=== PATIENT | male | born 1970 | race Caucasian/White ===

== ENCOUNTER 2023-04-01 12:55 | Emergency (ER) | payer OTHER, MEDICAID, SELFPAY ==
[2023-04-01 13:08] VITALS: BP 132/74; PULSE 96; RESP 15; TEMP 36.3; O2SAT 99; BMI 22.4
[2023-04-01 13:45] LABS: Add Manual Diff / Slide Review NO; Basophils Absolute Auto 100 /uL (0-100); Basophils Percent Auto 1.5 % (0-2); Eosinophils Absolute Auto 200 /uL (0-450); Eosinophils Percent Auto 2.5 % (2-4); Hematocrit 41.2 % (41-53); Hemoglobin 14.1 g/dL (13.5-17.5); Lymphocytes Absolute Auto 2500 /uL (1100-4500); Lymphocytes Percent Auto 34.2 % (25-40); Mean Corpuscular HGB Conc 34.3 % (30-36); Mean Corpuscular Hemoglobin 31.9 PG (26-34); Monocytes Absolute Auto 500 /uL (0-900); Monocytes Percent Auto 7.5 % (3-14); Neutrophils Absolute Auto 3900 /uL (1500-7000); Neutrophils Percent Auto 54.3 % (50-75); Platelet Count 316 X10^3/uL (150-400); Red Blood Cell Count 4.43 X10^6/uL (4.5-5.9); Red Cell Distribution Width 13.2 % (11.6-14.8); White Blood Cell Count 7.2 X10^3/uL (4.5-11.0)
--- NOTE | 2023-04-01 13:47 | ED_ITS ---
HPI - Male Genitourinary <DEBRA Le - Last Filed: 04/01/23 16:24> General Chief complaint: Urogenital-Male Stated complaint: Pain when urinating Time Seen by Provider: 04/01/23 13:06 Source: patient Mode of arrival: Ambulatory History of Present Illness HPI Narrative: This is a 52-year-old gentleman who presents to the emergency department complaining of right-sided flank pain and inguinal pain which he states has been intermittent over the last year but now has blood in his urine with right inguin al pain which is worse than usual. He endorses a history of methamphetamine use, smoking and nephrolithiasis. He denies fever chills, nausea vomiting states his pain in the right inguinal region is 6/10. He states that he has difficulty emptying his bladder, frequent nocturia, urgency, but denies pain with bowel movement or pain at the base of his penis. Denies known history of prostate issues. Denies any rectal pain. Related Data Previous Rx's Medication Instructions Recorded hydrocodone 5 mg-acetaminophen 325 1 tab PO Q6H PRN pain #14 tabs 04/01/23 mg tablet tamsulosin 0.4 mg capsule (Flomax) 0.4 mg PO BEDTIME #30 caps 04/01/23 Allergies Allergy/AdvReac Type Severity Reaction Status Date / Time No Known Drug Allergies Allergy Verified 04/01/23 13:08 Review of Systems <DEBRA Le - Last Filed: 04/01/23 16:24> Review of Systems ROS Unobtainable: All systems reviewed & are unremarkable except as noted in HPI and below Patient History <DEBRA Le - Last Filed: 04/01/23 16:24> Social History Smoking Status: Current every day smoker Smoking Status: Current every day smoker alcohol intake frequency: holidays/special occasions only Substance Use Type: methamphetamine Exam <DEBRA Le - Last Filed: 04/01/23 16:24> Narrative Exam Narrative: Reviewed vitals signs and nursing notes. General: Pleasant, sitting upright, in no acute distress, well groomed, afebrile HEENT: symmetrical facial expressions, moist mucous membranes, neck is supple CV: regular rate and rhythm, warm extremities Respiratory: normal work of breathing, without tachypnea or hypoxia. GI: abdomen soft, nondistended, right lower quadrant without tenderness, right CVA and right inguinal region is mildly tender MSK: moves all extremities, no weakness, normal tone, ambulatory without deficit Skin: brisk capillary refill, without rash or wound Neuro: clear speech and normal cognition, A&O x3, GCS 15, no focal motor or sensation deficits Initial Vital Signs Initial Vital Signs: Vital Signs Temperature 97.4 F L 04/01/23 13:08 Pulse Rate 96 H 04/01/23 13:08 Respiratory Rate 15 04/01/23 13:08 Blood Pressure 132/74 04/01/23 13:08 Pulse Oximetry 99 04/01/23 13:08 Oxygen Delivery Method Room Air 04/01/23 13:08 <Jeanne Salgado MD - Last Filed: 04/01/23 19:41> Initial Vital Signs Initial Vital Signs: Vital Signs Temperature 97.4 F L 04/01/23 13:08 Pulse Rate 96 H 04/01/23 13:08 Respiratory Rate 15 04/01/23 13:08 Blood Pressure 132/74 04/01/23 13:08 Pulse Oximetry 99 04/01/23 13:08 Oxygen Delivery Method Room Air 04/01/23 13:08 Course <DEBRA Le - Last Filed: 04/01/23 16:24> Orders Ordered: ED Orders 04/01/23 13:20 UA Complete [Urinalysis and Microscopic] Stat Urine Culture Stat 04/01/23 13:26 Complete Blood Count AUTO DIFF Stat Comprehensive Metabolic Panel Stat Lipase Stat 04/01/23 13:47 CT kidney ureter bladder (KUB) Stat 04/01/23 15:09 Consult to [facility] - [employer] [facility] Stat Discontinued Medications Hydromorphone HCl (Hydromorphone 0.5 Mg Inj) 0.5 mg IV NOW ONE Stop: 04/01/23 13:46 Last Admin: 04/01/23 13:58 Dose: 0.5 mg Documented By: NR Ketorolac Tromethamine (Ketorolac 30 Mg/Ml Vial) 15 mg IV NOW ONE Stop: 04/01/23 13:46 Last Admin: 04/01/23 13:57 Dose: 15 mg Documented By: NR Ondansetron HCl (Ondansetron 4 Mg/2 Ml Inj) 4 mg IV NOW PRN PRN Reason: Nausea And Vomiting Last Admin: 04/01/23 13:57 Dose: 4 mg Documented By: NR Tamsulosin HCl (Tamsulosin 0.4 Mg Capsule) 0.4 mg PO NOW ONE Stop: 04/01/23 15:35 Last Admin: 04/01/23 16:45 Dose: 0.4 mg Documented By: NR Vital Signs Vital signs: Vital Signs - 8 hr 04/01/23 13:08 04/01/23 16:45 Temperature 97.4 F L Pulse Rate 96 H 73 Respiratory Rate 15 Blood Pressure 132/74 117/69 Pulse Oximetry 99 99 Oxygen Delivery Method Room Air Room Air <Jeanne Salgado MD - Last Filed: 04/01/23 19:41> Orders Ordered: ED Orders 04/01/23 13:20 UA Complete [Urinalysis and Microscopic] Stat Urine Culture Stat 04/01/23 13:26 Complete Blood Count AUTO DIFF Stat Comprehensive Metabolic Panel Stat Lipase Stat 04/01/23 13:47 CT kidney ureter bladder (KUB) Stat 04/01/23 15:09 Consult to [facility] [place] - [employer] Stat Discontinued Medications Hydromorphone HCl (Hydromorphone 0.5 Mg Inj) 0.5 mg IV NOW ONE Stop: 04/01/23 13:46 Last Admin: 04/01/23 13:58 Dose: 0.5 mg Documented By: NR Ketorolac Tromethamine (Ketorolac 30 Mg/Ml Vial) 15 mg IV NOW ONE Stop: 04/01/23 13:46 Last Admin: 04/01/23 13:57 Dose: 15 mg Documented By: NR Ondansetron HCl (Ondansetron 4 Mg/2 Ml Inj) 4 mg IV NOW PRN PRN Reason: Nausea And Vomiting Last Admin: 04/01/23 13:57 Dose: 4 mg Documented By: NR Tamsulosin HCl (Tamsulosin 0.4 Mg Capsule) 0.4 mg PO NOW ONE Stop: 04/01/23 15:35 Last Admin: 04/01/23 16:45 Dose: 0.4 mg Documented By: NR Vital Signs Vital signs: Vital Signs - 8 hr 04/01/23 13:08 04/01/23 16:45 Temperature 97.4 F L Pulse Rate 96 H 73 Respiratory Rate 15 Blood Pressure 132/74 117/69 Pulse Oximetry 99 99 Oxygen Delivery Method Room Air Room Air MDM - Male Genitourinary <Tracie Tucker [facility] - Last Filed: 04/01/23 16:24> Lab Data 04/01/23 13:26 04/01/23 13:26 Labs: Lab Results 04/01/23 04/01/23 04/01/23 Range/Units 13:20 13:26 13:26 WBC 7.2 (4.5-11.0) X10^3/uL RBC 4.43 L (4.5-5.9) X10^6/uL Hgb 14.1 (13.5-17.5) g/dL Hct 41.2 (41-53) % MCV 93.0 (80-100) fL MCH 31.9 (26-34) PG MCHC 34.3 (30-36) % RDW 13.2 (11.6-14.8) % Plt Count 316 (150-400) X10^3/uL Neut % (Auto) 54.3 (50-75) % Lymph % (Auto) 34.2 (25-40) % [place] % (Auto) 7.5 (3-14) % Eos % (Auto) 2.5 (2-4) % Baso % (Auto) 1.5 (0-2) % Neut # (Auto) 3900 (4654-5590) /uL Lymph # (Auto) 2500 (4536-7630) /uL [place] # (Auto) 500 (0-900) /uL Eos # (Auto) 200 (0-450) /uL Baso # (Auto) 100 (0-100) /uL Sodium 139 (137-145) mmol/L Potassium 3.7 (3.4-5.1) mmol/L Chloride 103 (98-107) mmol/L Carbon Dioxide 27 (22-32) mmol/L BUN 22 H (9-20) mg/dL Creatinine 0.84 (0.66-1.25) mg/dL Estimated GFR > 60 (>60) mL/min BUN/Creatinine Ratio 26.2 H (6-22) Glucose 115 H (70-100) mg/dL Calcium 8.8 (8.4-10.2) mg/dL Total Bilirubin 0.2 (0.2-1.3) mg/dL AST 25 (17-59) IU/L ALT 35 (<50) IU/L Alkaline Phosphatase 60 (38-126) U/L Total Protein 7.5 (6.3-8.2) g/dL Albumin 4.6 (3.5-5.0) g/dL Globulin 2.9 (1.7-4.1) g/dL Albumin/Globulin Ratio 1.6 (1.0-2.8) Lipase 115 (23-300) U/L Urine Color Yellow Urine Appearance Clear Urine pH 6.0 (4.5-8.0) Ur Specific [place] >=1.030 H (1.000-1.035) Urine Protein 2+ H (Negative) Urine Glucose (UA) Negative (Negative) g/dL Urine Ketones Negative (NEGATIVE) Urine Occult Blood 3+ H (Negative) Urine Nitrate Negative (Negative) Urine Bilirubin Negative (NEGATIVE) Urine Urobilinogen 0.2 (0.2) E.U./dL Ur Leukocyte Esterase Negative (NEGATIVE) Urine RBC 30-100/hpf H (0-5/HPF) Urine WBC 5-10/hpf H (0-5/HPF) Ur Squamous Epith Cells None seen (0-5/HPF) Urine Bacteria None seen (None) Urine Mucus 1+ H (Negative) Ur Culture Indicated? Specimen cultured Urine Dip Bedside Urine Glucose Negative Bedside Urine Bilirubin - Negative Bedside Urine Ketone - Negative Urine Specific [place] 1.030 Bedside Urine Occult Blood +++ Bedside Urine pH 6.0 Bedside Urine Protein + 30 Bedside Urine Urobilinogen - Negative Bedside Urine Nitrite - Negative Bedside Urine Leukocytes - Negative Esterase Imaging Data CT scan - abdomen/pelvis: Radiologist's Impression: [address] [place] [id number] [address] Scan Report Signed Patient: Kye Colin MR#: [id number] : 1970 Acct:[id number] Age/Sex: 52 / M Date of Service: 04/01/23 Loc: ED Accession Number: [id number] ?? Procedure: CT kidney ureter bladder (KUB) Ordering Provider: Tracie Tucker PROCEDURE:? CT KIDNEY URETER BLADDER (KUB) ? INDICATIONS:? Right-sided flank and inguinal pain with hematuria ? TECHNIQUE:? Axial sections were acquired from the lung bases to the pubic symphysis.? Coronal and sagittal reformats were performed.? For radiation dose reduction, the following was used: ?automated exposure control, adjustment of mA and/or kV according to patient size.? ? COMPARISON:? None. ? FINDINGS:? Image quality:? Excellent.? ? Lung bases:? Unremarkable.? ? Heart:? No significant findings. ? URINARY: Right Kidney:? [place] brush calyceal calcifications and multiple tiny nonobstructing stones.? No hydronephrosis.? Findings consistent with renal tubular acidosis.? Right Ureter:? No hydroureter.? ? Left Kidney:? paint brush calyceal calcifications in multiple tiny nonobstructing stones. ?Findings consistent with renal tubular acidosis.? Left Ureter:? No hydroureter.? ? Bladder:? There is a large luminal bladder mass with peripheral calcifications.? The mass is suspicious for a polypoid bladder cancer measuring 4.2 x 6.0 x 5.0 cm. ? ABDOMEN: Liver:? Unremarkable.? ? Gallbladder:? The? ? Biliary ducts:? Unremarkable.? ? Pancreas:? Unremarkable.? ? Spleen:? Unremarkable.? ? Adrenal Glands:? Unremarkable.? ? ? Stomach and Bowel:? Stomach, small bowel loops, and colon are unremarkable.? Peritoneum:? No abnormal intraperitoneal fluid.? No free air.? ? Ventral Wall: ? No hernia.? Abdominal Nodes:? Question pelvic sidewall adenopathy versus unopacified bowel. Vessels:? Aorta and inferior vena cava are normal in size.? ? PELVIS: Pelvic Organs:? Unremarkable.? ? Pelvic Nodes: Unremarkable. Miscellaneous: No inguinal hernias are seen. ? ? ? Bones:? Lumbar degenerative change.? No lytic or blastic bony lesions.? No compression fractures. . ? IMPRESSION:? ? 1. 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 ? 2. Numerous tiny bilateral nonobstructing renal stones and paintbrush calcifications are consistent with renal tubular acidosis. ? 2. Question pelvic adenopathy versus unopacified bowel.? ? Comment:? Recommend CT abdomen and pelvis with oral and IV contrast.? Recommend referral to a urologist. ? ?? Dictated by: Atif Horner M.D. on 04/01/2023 at 14:43 ? ? Approved by: Atif Horner M.D. on 04/01/2023 at 14:48 ? MDM Narrative Medical decision making narrative: Chief Complaint: Right flank and inguinal pain with hematuria Multiple etiologies for patient's complaint considered including, but not limited to: Nephrolithiasis, BPH, prostatitis, urinary tract infection, obstructive uropathy, pyelonephritis, appendicitis I have independently reviewed the patient's vital signs and nursing notes as well as prior records if available. Plan: Pain control, CT KUB, UA with microscopy. Urine dip is positive for blood and protein, will evaluate on microscopy UA shows blood and protein Patient's lab work is unremarkable, no leukocytosis or anemia, UA with blood and WBCs, no leukocyte esterase or bacteria, specimen was cultured. Urology coverage is through [facility] today, Dr. Jurado is in seeing the patient currently, consulted with the office who states that if patient can obtain insurance coverage by Wednesday there is a to [address] Jurado for follow-up that he can. I contacted registration who states that they do not know how to help him with this application, put in a social work referral, will discuss when they are available. Patient states that he filled out most of the paperwork mind but was unsure what to put for a few other parts. CT KUB is significant for probable large polypoid bladder cancer measuring 6 cm in maximum dimension. Numerous tiny bilateral nonobstructing renal stones and calcifications consistent with renal tubular acidosis. Impression also states question pelvic adenopathy versus opacified bowel. Consultation with Dr. Jurado was attempted, he is in seeing in a patient, left message to call back Patient will complete his Medicare paperwork with social work tomorrow over the. Instructed him to call the appointment for Wednesday and to follow-up as directed with Dr. Jurado. He states understanding, gave him hydrocodone for pain, instructed him to come in for inability to void, increased blood in his urine, pain out of proportion, vomiting or chills. Patient does not have evidence of anemia or leukocytosis on his labs, other significant finding other than his UA being positive for RBCs WBCs. Social considerations that may affect disposition: none Questions are addressed and there is agreement with the plan and for follow-up. I consulted with the ED attending physician Dr. Salgado as needed for higher level of care considerations and they were available for discussion and recommendations regarding plan of care and diagnostic testing. Patient is appropriate for outpatient management. <Jeanne Salgado MD - Last Filed: 04/01/23 19:41> Lab Data Labs: Lab Results 04/01/23 04/01/23 04/01/23 Range/Units 13:20 13:26 13:26 WBC 7.2 (4.5-11.0) X10^3/uL RBC 4.43 L (4.5-5.9) X10^6/uL Hgb 14.1 (13.5-17.5) g/dL Hct 41.2 (41-53) % MCV 93.0 (80-100) fL MCH 31.9 (26-34) PG MCHC 34.3 (30-36) % RDW 13.2 (11.6-14.8) % Plt Count 316 (150-400) X10^3/uL Neut % (Auto) 54.3 (50-75) % Lymph % (Auto) 34.2 (25-40) % [place] % (Auto) 7.5 (3-14) % Eos % (Auto) 2.5 (2-4) % Baso % (Auto) 1.5 (0-2) % Neut # (Auto) 3900 (7235-3237) /uL Lymph # (Auto) 2500 (6440-4472) /uL [place] # (Auto) 500 (0-900) /uL Eos # (Auto) 200 (0-450) /uL Baso # (Auto) 100 (0-100) /uL Sodium 139 (137-145) mmol/L Potassium 3.7 (3.4-5.1) mmol/L Chloride 103 (98-107) mmol/L Carbon Dioxide 27 (22-32) mmol/L BUN 22 H (9-20) mg/dL Creatinine 0.84 (0.66-1.25) mg/dL Estimated GFR > 60 (>60) mL/min BUN/Creatinine Ratio 26.2 H (6-22) Glucose 115 H (70-100) mg/dL Calcium 8.8 (8.4-10.2) mg/dL Total Bilirubin 0.2 (0.2-1.3) mg/dL AST 25 (17-59) IU/L ALT 35 (<50) IU/L Alkaline Phosphatase 60 (38-126) U/L Total Protein 7.5 (6.3-8.2) g/dL Albumin 4.6 (3.5-5.0) g/dL Globulin 2.9 (1.7-4.1) g/dL Albumin/Globulin Ratio 1.6 (1.0-2.8) Lipase 115 (23-300) U/L Urine Color Yellow Urine Appearance Clear Urine pH 6.0 (4.5-8.0) Ur Specific [place] >=1.030 H (1.000-1.035) Urine Protein 2+ H (Negative) Urine Glucose (UA) Negative (Negative) g/dL Urine Ketones Negative (NEGATIVE) Urine Occult Blood 3+ H (Negative) Urine Nitrate Negative (Negative) Urine Bilirubin Negative (NEGATIVE) Urine Urobilinogen 0.2 (0.2) E.U./dL Ur Leukocyte Esterase Negative (NEGATIVE) Urine RBC 30-100/hpf H (0-5/HPF) Urine WBC 5-10/hpf H (0-5/HPF) Ur Squamous Epith Cells None seen (0-5/HPF) Urine Bacteria None seen (None) Urine Mucus 1+ H (Negative) Ur Culture Indicated? Specimen cultured Urine Dip Bedside Urine Glucose Negative Bedside Urine Bilirubin - Negative Bedside Urine Ketone - Negative Urine Specific [place] 1.030 Bedside Urine Occult Blood +++ Bedside Urine pH 6.0 Bedside Urine Protein + 30 Bedside Urine Urobilinogen - Negative Bedside Urine Nitrite - Negative Bedside Urine Leukocytes - Negative Esterase Discharge Plan Departure Patient Disposition: Home Clinical Impression: Bladder mass, Bilateral renal stones Hematuria Qualifiers: Hematuria type: gross Qualified Code(s): R31.0 - Gross hematuria Instructions: Bladder Cancer Activity Restrictions/Additional Instructions: *You have been diagnosed with a bladder mass measuring 6 cm. This is concerning for cancer. Please call Dr. Jurado's office and ensure that you are scheduled for the appointment on Wednesday at 02:15. Please finish your paperwork as soon as you get home online and pick an insurance. Please follow-up as needed, I have given you a prescription of Flomax to help with voiding, okay to use Tylenol ibuprofen as needed for pain or hydrocodone. Please talk to Jacki tomorrow who will help you finish this. I hope that you feel better soon, I am sorry about this news. Please come back here if you have any complications or if you started bleeding heavily. Okay to use ibuprofen so for pain, take it with food please. *What to do: *Please continue to take your regular medications as directed. [x ] New medication prescriptions sent to your pharmacy: [ [facility]] [ ] New medication written as a paper prescription [ ] No new medications given *Please call and schedule follow up with your primary care provider in 2-3 days, at least for an update. Let them know you were seen in the Emergency Department for the above problem. We will electronically transmit a record of today's note if your PCP or specialist is in our system. *If you do not have a primary care provider please contact [phone] to establish care with one of the [facility] primary care providers. *Return to the Emergency Department for worsening symptoms, inability to keep liquids down, fever greater than 101F, chills, or other concerning symptom. Prescriptions: New tamsulosin [Flomax] 0.4 mg capsule 0.4 mg PO BEDTIME Qty: 30 0RF hydrocodone-acetaminophen 5-325 mg tablet 1 tab PO Q6H PRN (Reason: pain) Qty: 14 0RF Referrals: Baldo Jurado MD [Physician] - Stand Alone Forms: Patient Portal/API <Jeanne Salgado MD - Last Filed: 04/01/23 19:41> [facility] I was immediately available in the department for consultation throughout this patient's visit. Jeanne Salgado MD
--- NOTE | 2023-04-01 13:47 | DI.CT.S_ITS ---
PROCEDURE: CT KIDNEY URETER BLADDER (KUB) INDICATIONS: Right-sided flank and inguinal pain with hematuria TECHNIQUE: Axial sections were acquired from the lung bases to the pubic symphysis. Coronal and sagittal reformats were performed. For radiation dose reduction, the following was used: automated exposure control, adjustment of mA and/or kV according to patient size. COMPARISON: None. FINDINGS: Image quality: Excellent. Lung bases: Unremarkable. Heart: No significant findings. URINARY: Right Kidney: [place] brush calyceal calcifications and multiple tiny nonobstructing stones. No hydronephrosis. Findings consistent with renal tubular acidosis. Right Ureter: No hydroureter. Left Kidney: paint brush calyceal calcifications in multiple tiny nonobstructing stones. Findings consistent with renal tubular acidosis. Left Ureter: No hydroureter. Bladder: There is a large luminal bladder mass with peripheral calcifications. The mass is suspicious for a polypoid bladder cancer measuring 4.2 x 6.0 x 5.0 cm. ABDOMEN: Liver: Unremarkable. Gallbladder: The Biliary ducts: Unremarkable. Pancreas: Unremarkable. Spleen: Unremarkable. Adrenal Glands: Unremarkable. Stomach and Bowel: Stomach, small bowel loops, and colon are unremarkable. Peritoneum: No abnormal intraperitoneal fluid. No free air. Ventral Wall: No hernia. Abdominal Nodes: Question pelvic sidewall adenopathy versus unopacified bowel. Vessels: Aorta and inferior vena cava are normal in size. PELVIS: Pelvic Organs: Unremarkable. Pelvic Nodes: Unremarkable. Miscellaneous: No inguinal hernias are seen. Bones: Lumbar degenerative change. No lytic or blastic bony lesions. No compression fractures. . IMPRESSION: 1. 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 2. Numerous tiny bilateral nonobstructing renal stones and paintbrush calcifications are consistent with renal tubular acidosis. 2. Question pelvic adenopathy versus unopacified bowel. Comment: Recommend CT abdomen and pelvis with oral and IV contrast. Recommend referral to a urologist. Dictated by: Atif Horner M.D. on 04/01/2023 at 14:43 Approved by: Atif Horner M.D. on 04/01/2023 at 14:48
[2023-04-01 13:48] LABS: Appearance Urine UA CLEAR; Bilirubin Urine UA NEGATIVE (NEGATIVE); Color Urine UA YELLOW; Glucose Urine UA NEGATIVE (Negative); Ketones Urine UA NEGATIVE (NEGATIVE); Leukocyte Esterase Urine UA NEGATIVE (NEGATIVE); Nitrite Urine UA NEGATIVE (Negative); Occult Blood Urine UA 3+ (Negative); Protein Urine UA 2+ (Negative); Specific Gravity Urine UA >=1.030 (1.000-1.035); Urobilinogen Urine UA 0.2 E.U./dL (0.2)
[2023-04-01] MEDS: ONDANSETRON 4 MG/2 ML INJ IV (13:57)
[2023-04-01] MEDS: KETOROLAC 30 MG/ML VIAL 15 MG IV (13:57)
[2023-04-01] MEDS: HYDROMORPHONE 0.5 MG INJ IV (13:58)
[2023-04-01 14:01] LABS: Alanine Aminotransferase 35 IU/L (<50); Albumin 4.6 g/dL (3.5-5.0); Albumin Globulin Ratio 1.6 (1.0-2.8); Alkaline Phosphatase 60 U/L (38-126); Aspartate Aminotransferase 25 IU/L (17-59); BUN Creatinine Ratio 26.2 (6-22); Bilirubin Total 0.2 mg/dL (0.2-1.3); Blood Urea Nitrogen 22 mg/dL (9-20); Calcium 8.8 mg/dL (8.4-10.2); Carbon Dioxide 27 mmol/L (22-32); Chloride 103 mmol/L (98-107); Estimated Glomerular Filt Rate > 60 mL/min (>60); Globulin 2.9 g/dL (1.7-4.1); Glucose 115 mg/dL (70-100); HEMOLYSIS < 15 (0-50); Lipase 115 U/L (23-300); Potassium 3.7 mmol/L (3.4-5.1); Sodium 139 mmol/L (137-145); Total Protein 7.5 g/dL (6.3-8.2)
[2023-04-01 14:03] LABS: Bacteria Urine None Seen; Culture Indicated Urine Specimen Cultured; Mucus Urine 1+ (Negative); RBC Urine 30-100/HPF (0-5/HPF); Squamous Epithelial Cell Urine None Seen (0-5/HPF); WBC Urine 5-10/HPF (0-5/HPF)
--- NOTE | 2023-04-01 14:07 | PC.NURSE ---
Addendum entered by Hilda Carroll R.N. 04/01/23 14:07: unable to load patient information into VS machine. Original Note: pt placed in room 3 for VS observation. placed on Q30min BP with continuous pulse oximetry
[2023-04-01 16:45] VITALS: BP 117/69; PULSE 73; O2SAT 99
[2023-04-01] MEDS: TAMSULOSIN 0.4 MG CAPSULE PO (16:45)
== END 2023-04-01 16:46 | disposition home or self-care (01) ==
PROVIDERS: Emergency Medicine; Emergency Provider Nurse Practitioner Critical Care Medicine
DX: N20.0 Calculus of kidney (principal); R31.0 Gross hematuria; N32.89 Other specified disorders of bladder
CPT/HCPCS: 36415; 74176; 80053; 81001; 81003; 83690; 85025; 87086; 96374; 96375; 99284; J1170; J1885; J2405

== ENCOUNTER → 2023-04-22 11:07 | Outpatient (CLI) | payer OTHER, MEDICAID, SELFPAY ==
--- NOTE | 2023-04-22 11:09 | DI.CT.S_ITS ---
PROCEDURE: CT IVP A/P W/WO INDICATIONS: Bladder mass question adenopathy TECHNIQUE: Optional 5 mm thick noncontrast images acquired from the diaphragm to the symphysis pubis. After the administration of intravenous contrast, 5 mm thick images acquired from the diaphragm to the symphysis pubis after a 10-minute delay. 2 mm thick coronal and sagittal reformats were then performed of the kidneys and ureters. For radiation dose reduction, the following was used: automated exposure control, adjustment of mA and/or kV according to patient size. COMPARISON: [facility], CT, CT KIDNEY URETER BLADDER (KUB), 04/01/2023, 14:29. FINDINGS: Image quality: Excellent. Lung bases: Lung bases are clear. Heart size is normal. Urinary system: Moderate burden punctate, bilateral nonobstructing nephrolithiasis. Endophytic solid lesion of the right kidney measuring 2.9 x 3.7 cm (series 4, image 89). Left-sided bladder wall mass measuring 4.5 x 5.4 cm. Mild wall thickening along the anterior margin, without perivesicular fat stranding or irregular outer contour to suggest invasion beyond the wall. Other solid organs: Liver is normal in size and enhancement. Gallbladder is unremarkable . Biliary system is non dilated. Pancreas enhances normally. Spleen is normal in size and enhancement. No adrenal nodules. Peritoneum and bowel: Bowel loops demonstrate normal wall thickness and caliber. No free fluid or air. Nodes and vessels: No retroperitoneal or mesenteric adenopathy by size criteria. Aorta and inferior vena cava are normal in size. Abdominal wall: No ventral hernias. Pelvis: No pathologic free pelvic fluid. No inguinal hernias or adenopathy. Bones: No suspicious bony lesions. No vertebral body compression fractures. IMPRESSION: Left-sided bladder wall mass measuring 4.5 x 5.4 cm. Mild wall thickening along the anterior margin, without perivesicular fat stranding or irregular outer contour to suggest invasion beyond the wall. No retroperitoneal adenopathy. Endophytic solid lesion on the midpole of the right kidney, probably representing a prominent column Of [place], less likely additional mass. Consider MRI for confirmation (renal mass protocol). Dictated by: Seymour Osorio M.D. on 04/22/2023 at 12:47 Approved by: Seymour Osorio M.D. on 04/22/2023 at 12:53
== END ==
PROVIDERS: Referring Provider Urology; Visit Provider Urology
DX: N32.89 Other specified disorders of bladder (principal); N28.9 Disorder of kidney and ureter, unspecified
CPT/HCPCS: 74178

== ENCOUNTER → 2023-05-11 06:52 | Day surgery (SDC) | payer OTHER, MEDICAID, SELFPAY ==
[2023-05-04 14:18] VITALS: BMI 22.4
[2023-05-11 07:11] VITALS: BP 128/72; PULSE 92; RESP 17; TEMP 36.3; O2SAT 98; BMI 22.3
[2023-05-11] MEDS: ALBUTEROL/IPRATROPIUM 3 ML AMPUL INH (07:29)
[2023-05-11] MEDS: LACTATED RINGERS 1,000 ML 42 ML IV (07:29)
--- NOTE | 2023-05-11 07:30 | SUR.OPER ---
Lithotomy on padded OR bed, head on pillow, arms secured on padded arm boards at <90 degrees abduction. Legs secured in padded yellow fins stirrups.
--- NOTE | 2023-05-11 07:48 | SUR.PREOP ---
Notified anesthesiologist and surgeon that patient used methampethamines at [address]. Dr Jurado speaking to patient. Patient apologetic but understands reason for cancellation. Advised patient to contact Dr Jurado's office to reschedule.
== END ==
PROVIDERS: Referring Provider Urology; Visit Provider Urology
DX: D49.4 Neoplasm of unspecified behavior of bladder (principal); Z53.8 Procedure and treatment not carried out for other reasons
CPT/HCPCS: 52224

== ENCOUNTER 2023-05-18 07:53 | Day surgery (SDC) | payer OTHER, MEDICAID, SELFPAY ==
[2023-05-18] VITALS (8 sets, daily range): BP systolic 107–138; BP diastolic 61–79; PULSE 65–83; RESP 13–18; TEMP 36.2–36.6; O2SAT 98–99; BMI 21.7
--- NOTE | 2023-05-18 | PATH_ITS ---
[facility] Accession Number: [id number] No. of containers..01 Tissue . 01 Material submitted: . bladder - LEFT LATERAL WALL BLADDER TUMOR . 01 Diagnosis: A. Bladder Tumor, Left Lateral Wall, Transurethral Resection: Papillary urothelial carcinoma, Low-grade, Non-invasive. Muscularis propria: Present and uninvolved. . COMMENT: The large tumor is entirely histologically examined. Inverted growth pattern is seen. MRV 05/27/2023 1556 Local . 01 Electronically signed: . Nitza Leigh MD, Pathologist NPI- [id number] . 01 Gross description: . The specimen is received in formalin labeled with the patient's name, , and left lateral wall bladder tumor, and consists of multiple dennis soft tissue fragments admixed with hemorrhagic material weighing 52 g and aggregating to 10.3 x 9.5 x 3.6 cm. Gambling Broker sections are submitted in cassettes A1-A15. . Case discussed with Dr. Denise and Dr. Paz. ([id number]) . Additional sections are submitted in cassettes [id number]. . The remaining specimen is submitted entirely in cassettes [id number]. ([id number]) /[facility] 05/27/2023 1214 Local . 01 Pathologist provided ICD-10: C67.9 . 01 CPT . 136773 Specimen Comment: A courtesy copy of this report has been sent to [phone] Performed at: 01 [facility] [address] [place] [address] [address] [facility], [place], [place] [id number] MD Gabino Denise MD Phone: [phone]
[2023-05-18] MEDS: LACTATED RINGERS 1,000 ML 21 ML IV ×2 (08:40→10:56)
[2023-05-18 08:58] LABS: UR Morphine/Opiate cutoff 300 Negative (Negative); Ur Creatinine Normal (Normal); Ur Specific Gravity Normal (Normal); Urine Amphetamines Positive (Negative); Urine Barbiturates Negative (Negative); Urine Benzodiazepines Negative (Negative); Urine Cocaine Negative (Negative); Urine MDMA Negative (Negative); Urine Methadone Negative (Negative); Urine Methamphetamines Positive (Negative); Urine Oxycodone Negative (Negative); Urine Phencyclidine Negative (Negative); Urine Tetrahydrocannabinol Positive (Negative); Urine Tricyclic Antidepressant Negative (Negative); Urine pH Normal (Normal)
--- NOTE | 2023-05-18 09:34 | PM.PREOP ---
Pre-operative Note COVID-19 COVID-19 status: Not tested Criteria for continued procedure: Delay expected to result in less-positive ultimate med/surg outcome and Non-surgical alternatives not available or appropriate per current SOC Interval Note History & Physical reviewed/Exam performed by Physician: Yes Changes to H&P: No
[2023-05-18] MEDS: CEFAZOLIN 2 GM/100 ML PREMIX 100 ML IV (10:07)
--- NOTE | 2023-05-18 10:11 | PM.EVENT ---
Event Note Date Patient Seen: 05/18/23 Time Patient Seen: 09:15 Event Note (Rapid Response, Code, or fall): Discussion with patient regarding procedure urgency vs risk of methamphentamine use. Patient states last use 4 days ago, urinaylsis postitive, however can be for up to 5 days. All indicators negative for acute or recent intoxication. Risk of not proceeding with procedure high as it may cause patient harm in light of bladder tumor of unknown pathology. Patient requests to proceed due to the urgency of needing to identify the pathology of known bladder tumor. Patient counseled that additional care including hospital transfer may occur, and it aware that risk is increased with methamphetamine use. To proceed with surgery; Dr. Jurado updated.
--- NOTE | 2023-05-18 10:19 | SUR.OPER ---
Lithotomy on padded OR bed, head on pillow, arms secured on padded arm boards at <90 degrees abduction. Legs secured in padded yellow fins stirrups.
[2023-05-18] MEDS: WATER FOR INJECTION,STERILE 20 ML, mitoMYcin 20 MG INTRAVESIC (11:47)
--- NOTE | 2023-05-18 12:00 | P.OP_ITS ---
Procedure & Clinicians Procedure: Transurethral resection of bladder tumor (large), intraoperative left ureteral catheterization, instillation of mitomycin also with extended time taking 2 hours due to size and location of the tumor. Same procedure as scheduled: Yes Indications: This 52-year-old male presented to the emergency department through the workup was found to have a large mass within his bladder which appeared to be consistent with bladder tumor. Now finally having been prepared he presents this time for resection of the tumor and instillation of mitomycin. Surgeon: Baldo Jurado Click Yes if Unassisted: Yes Anesthesia Type: General Operative Notes Findings: Findings: Urethral meatus is normal urethra is normal prostatic fossa shows minimal to moderate obstructive character. Right ureteral orifice in normal position. The large tumor is located on the left lateral wall in close proximity to but not involving the left ureteral orifice therefore a [place] catheter was put in place during the resection to aid in identification of the orifice and thus protect it from damage. The tumor was 6-1/2-7 cm in diameter and did come down to a ?stalk ?. Did have superficial calcifications and was quite vascular. At the end of the procedure it did appear that all tumor had been resected. And hemostasis was good a [address] catheter was left in place with the mitomycin. There were no other tumors within the bladder and the remainder of the bladder mucosa appeared normal. There was some neovascularity at the base of the tumor this was cauterized as well as a margin. Closure Type: not applicable Specimen(s): other (Left lateral wall bladder tumor) Prosthetic devices, grafts, tissues, transplants, or devices: [address] [place] catheter with 14 cc in the balloon Applied: catheter ([address] [place] [address] Gill[place] catheter with 14 cc in the balloon) Estimated Blood Loss (mL): 100 Blood products transfused: none Procedure in detail: Procedure in detail: After informed consent was obtained, the patient was identified and brought to the operating room where he was placed in a supine position on the table. Patient then had anesthesia induced and maintained. Showing an adequate level of anesthesia the patient was transferred to the lithotomy position where he was prepped, draped, prepared for Transurethral procedure. After prepping, draping, ensuring and at a level anesthesia and time-out a 22 [place] cystoscope was passed through the urethra prostate and into the bladder under direct vision cystoscopy was performed. Given the position of the left ureteral orifice in the tumor a Gilliland catheter was passed up and into the left collecting system and left in place. The scope was backed out leaving the catheter in place. The catheter was secured to the drape with a hemostat to ensure that it was not dislodged. The continuous-flow resectoscope was then inserted under direct vision. The working element inserted and the tumor sequentially resected. Due to the volume of tumor periodically the [place] evacuator was employed to evacuate the fragments to facilitate resection. Again this was an extended resection taking 2 hours. This was due to the size and location of the tumor. As the base was approached the loop was exchanged for the ?button and the small remaining fragments were destroyed with the button as well as hemostasis achieved. All fragments were evacuated from the bladder. The [place] catheter was removed under direct vision the orifice was intact and had clear efflux of urine. The bladder was then drained filled drained filled hemostasis remained good. The bladder was left full scope was were moved and the 24 [place] catheter passed through the urethra and into the bladder without difficulty. The mitomycin plug was then put in place and the mitomycin instilled within the bladder. At this point the patient was awakened having tolerated the procedure well to be transferred to the postanesthesia care unit for recovery and indwelling time for the mitomycin there were no complications. The tumor fragments were placed in formalin and forward to pathology for pathologic examination. Complications: none Post-operative Condition: stable Disposition: PACU Plan for aftercare: Patient to be discharged to home to follow-up in my office in approximately 2 weeks.
[2023-05-18] MEDS: OXYCODONE/ACETAMINOPHEN 5/325 TABLET 1 TAB PO ×2 (12:29→14:34)
[2023-05-18] MEDS: hydrOXYzine pamoate 25 MG CAPSULE PO (12:29)
[2023-05-18] MEDS: OXYBUTYNIN 5 MG TABLET PO (12:46)
[2023-05-18] MEDS: PHENAZOPYRIDINE 100 MG TABLET 200 MG PO (12:46)
[2023-05-18] MEDS: ONDANSETRON 4 MG/2 ML INJ IV (12:51)
== END 2023-05-18 15:16 | disposition home or self-care (01) ==
PROVIDERS: Registered Nurse; Referring Provider Urology; Visit Provider Urology
PROC: 0TBB8ZZ Excision of Bladder, Via Natural or Artificial Opening Endoscopic (ICD-10-PCS; CPT 52240; principal; 2023-05-18 09:15)
DX: C67.9 Malignant neoplasm of bladder, unspecified (principal); F17.210 Nicotine dependence, cigarettes, uncomplicated; R39.9 Unspecified symptoms and signs involving the genitourinary system; R39.14 Feeling of incomplete bladder emptying
CPT/HCPCS: 52240; 80305; 82962; J0690; J1100; J1170; J2405; J2704; J3010; J3490; J9280

== ENCOUNTER 2023-05-23 20:56 | Emergency (ER) | payer OTHER, MEDICAID, SELFPAY ==
[2023-05-23 21:11] VITALS: BP 124/74; PULSE 110; RESP 18; TEMP 36.1; O2SAT 96; BMI 21.7
--- NOTE | 2023-05-23 21:18 | ED.GENADULT ---
HPI - General Adult General Chief complaint: Urogenital-Male Stated complaint: Cath issues Time Seen by Provider: 05/23/23 21:10 Source: patient Mode of arrival: Ambulatory History of Present Illness HPI narrative: 52-year-old male here for evaluation of potential catheter issues. He has a urinary catheter in place secondary to a tumor removal. He is here this evening because he is having issues with the catheter draining. Related Data Home Medications Medication Instructions Recorded Confirmed ibuprofen 200 mg capsule 200 mg PO Q6H 05/04/23 05/18/23 acetaminophen 325 mg tablet 325 mg PO Q4H 05/11/23 05/18/23 (Tylenol) Previous Rx's Medication Instructions Recorded tamsulosin 0.4 mg capsule 0.8 mg PO DAILY Bladder outlet 05/04/23 obstruction #60 caps oxybutynin chloride 5 mg tablet 5 mg PO BID-TID PRN bladder spasms 05/18/23 #30 tabs phenazopyridine 200 mg tablet 200 mg PO TID PRN Bladder spasm 05/18/23 (Pyridium) #30 tabs Allergies Allergy/AdvReac Type Severity Reaction Status Date / Time No Known Drug Allergies Allergy Verified 05/23/23 21:11 Review of Systems Constitutional Constitutional: Reports system reviewed and no additional complaints, except as documented Gastrointestinal Gastrointestinal: Reports system reviewed and no additional complaints, except as documented Genitourinary Genitourinary: Reports system reviewed and no additional complaints, except as documented Integumentary/Breasts Skin/Breast: Reports system reviewed and no additional complaints, except as documented Patient History Medical History Bladder cancer Feeling of incomplete bladder emptying Gilliland catheter in place History of kidney stones Incomplete emptying of bladder Lower urinary tract symptoms Methamphetamine use Right lower quadrant pain Tobacco use Surgical History Hx of tonsillectomy Hx of tooth extraction Social History marital status: number of children: 2 household members: significant other occupational status: employed Smoking Status: Current every day smoker Tobacco: How many years used: 25 alcohol intake: former caffeine: Yes Type(s) of exercise: regular exercise frequency: daily Smoking Status: Current every day smoker alcohol intake frequency: holidays/special occasions only Substance Use Type: marijuana and methamphetamine Exam Initial Vital Signs Initial Vital Signs: Vital Signs Temperature 97.0 F L 05/23/23 21:11 Pulse Rate 110 H 05/23/23 21:11 Respiratory Rate 18 05/23/23 21:11 Blood Pressure 124/74 05/23/23 21:11 Pulse Oximetry 96 05/23/23 21:11 Oxygen Delivery Method Room Air 05/23/23 21:11 Other: Urinary catheter in place Skin General: no rashes or lesions noted Course Orders Ordered: ED Orders 05/23/23 21:14 Consult to RECEPTION MANAGER - Auto Camp Attendant Stat Vital Signs Vital signs: Vital Signs - 8 hr 05/23/23 21:11 Temperature 97.0 F L Pulse Rate 110 H Respiratory Rate 18 Blood Pressure 124/74 Pulse Oximetry 96 Oxygen Delivery Method Room Air Medical Decision Making MDM Narrative Medical decision making narrative: It appears that the catheter is draining appropriately. Most likely the issue is that the patient is having issues with the device that secures the catheter to his leg. He arrived with the catheter looped multiple times around his leg and also with tape on the catheter and it a chest to his leg by a shoe lace. We removed all this. We straightened the catheter out. It is draining urine. No need to remove the catheter. Will discharge patient home with follow-up instructions. Discharge Plan Departure Patient Disposition: Home Clinical Impression: Complication of Gilliland catheter Instructions: How to Care for Your Gilliland Catheter -- Male Activity Restrictions/Additional Instructions: Continue to take all of your medications as directed. Be sure that you are drinking plenty of fluids. Keep all of your scheduled medical appointments. Return to the emergency department for new or worsening symptoms. Prescriptions: No Action acetaminophen [Tylenol] 325 mg Tablet 325 mg PO Q4H oxybutynin chloride 5 mg tablet 5 mg PO BID-TID PRN (Reason: bladder spasms) Qty: 30 1RF phenazopyridine [Pyridium] 200 mg tablet 200 mg PO TID PRN (Reason: Bladder spasm) Qty: 30 1RF ibuprofen 200 mg capsule 200 mg PO Q6H tamsulosin 0.4 mg capsule 0.8 mg PO DAILY Qty: 60 12RF Referrals: Miscellaneous,Doctor, MD [Primary Care Provider] - Stand Alone Forms: Patient Portal/API
== END 2023-05-23 21:36 | disposition home or self-care (01) ==
PROVIDERS: Emergency Provider Emergency Medicine
DX: T83.9XXA Unspecified complication of genitourinary prosthetic device, implant and graft, initial encounter (principal)
CPT/HCPCS: 99281

== ENCOUNTER → 2024-04-06 09:05 | Outpatient (CLI) | payer OTHER, MEDICAID, SELFPAY ==
--- NOTE | 2024-04-06 09:06 | DI.CT.S_ITS ---
PROCEDURE: CT IVP A/P W/WO INDICATIONS: Bladder cancer TECHNIQUE: Optional 5 mm thick noncontrast images acquired from the diaphragm to the symphysis pubis. After the administration of intravenous contrast, 5 mm thick images acquired from the diaphragm to the symphysis pubis after a 10-minute delay. 2 mm thick coronal and sagittal reformats were then performed of the kidneys and ureters. For radiation dose reduction, the following was used: automated exposure control, adjustment of mA and/or kV according to patient size. COMPARISON: [facility], CT, CT IVP A/P W/WO, 04/22/2023, 11:17. FINDINGS: Image quality: Diagnostic. Kidneys and Ureters: Endophytic lesion of the right kidney with central renal collecting system measuring 3.3 x 3 centimeter, previously 3.7 x 3.0 centimeter (series 4, image 84). No complex renal cystic lesions which require follow-up. Bladder: Bladder wall thickness is normal. No calcified bladder stones. OTHER: Lower chest: Unremarkable. Liver: No solid mass. Gallbladder: No radiopaque gallstones or wall thickening. Biliary ducts: No biliary dilation. Pancreas: No ductal dilation. Spleen: Size is within normal limits. Adrenal Glands: No adrenal nodules. Stomach and Bowel: Normal colonic caliber, without significant wall thickening. Normal appendix. Peritoneum: No abnormal intraperitoneal fluid. No free air. Ventral Wall: No hernia. Abdominal Nodes: No retroperitoneal or mesenteric adenopathy by size criteria. Vessels: Aorta and inferior vena cava are normal in size. PELVIS: Pelvic Organs: Unremarkable. Pelvic Nodes: No enlarged lymph nodes. Miscellaneous: No inguinal hernias are seen. Bones: No aggressive osseous abnormality. IMPRESSION: Interval resection of the left bladder mass , without residual disease or pelvic adenopathy. Endophytic lesion of the right renal with central renal collecting system measuring 3.3 x 3 centimeter, previously 3.7 x 3.0 centimeter. Findings probably represent a prominent column of [place], especially given the central renal collecting system component. Close attention on follow-up is recommended, otherwise MRI of the abdomen could be considered. Dictated by: Seymour Osorio M.D. on 04/06/2024 at 13:39 Approved by: Seymour Osorio M.D. on 04/06/2024 at 13:43
[2024-04-06 09:56] LABS: Estimated Glomerular Filt Rate > 60 mL/min (>60)
== END ==
PROVIDERS: Radiology Diagnostic Radiology; Referring Provider Urology; Visit Provider Urology
DX: C67.2 Malignant neoplasm of lateral wall of bladder (principal); N28.89 Other specified disorders of kidney and ureter
CPT/HCPCS: 36415; 74178; 82565; Q9967

== ENCOUNTER → 2024-06-29 10:29 | Outpatient (CLI) | payer OTHER, MEDICAID, SELFPAY | PROVIDERS: Visit Provider Urology | DX: R39.9 Unspecified symptoms and signs involving the genitourinary system (principal) | CPT/HCPCS: 87077; 87086 ==